=== PATIENT | female | born 1970 | race Caucasian/White ===

== ENCOUNTER → 2024-07-19 15:47 | Outpatient (REF) | payer BC, SELFPAY | LOC: WDC 15:47 | PROVIDERS: ATTENDING PHYSICIAN Family Medicine | DX: Z12.31 Encounter for screening mammogram for malignant neoplasm of breast (principal) | CPT/HCPCS: 77063; 77067 ==

== ENCOUNTER → 2025-07-20 16:03 | Outpatient (REF) | payer BC, SELFPAY | LOC: WDC 16:03 | PROVIDERS: ATTENDING PHYSICIAN Family Medicine | DX: Z12.31 Encounter for screening mammogram for malignant neoplasm of breast (principal) | CPT/HCPCS: 77063; 77067 ==